=== PATIENT | female | born 1990 | race African-American/Black ===

== ENCOUNTER 2018-12-05 08:44 | Outpatient (CLI) | payer OTHER ==
[~2018-12-05] VITALS: Ht 172.7 cm; Wt 83.6 kg
[2018-12-05 09:22] VITALS: BP 124/81; PULSE 94; TEMP 98.4
[2018-12-05] MEDS ORDERED: PRENATAL MVI (09:22)
[2018-12-05 09:30] VITALS: BP 124/81; PULSE 94; TEMP 98.4
--- NOTE | 2018-12-05 09:36 | NUR ---
0915 PT ARRIVES VIA WC WITH CVOMPLAINTS OF SUSPECTED SROM. TO BED WITH MONITORS PLACED. SVE SHOWS NEGATIVE AMNIO INDICATOR. PLAN OF CARE DISCUSSED AND ASSESSMENT STARTED.
--- NOTE | 2018-12-05 10:16 | NUR ---
0940 ASSESSMENT COMPLETED,. PLAN OF CARE DISCUSSED. 0950 DR RESENDEZ ON UNIT FOR ROUNDS AND PT STATUS REPORT GIVEN. ORDERS FOR DISCHARGE RECIEVED. 1005 HOME CARE INSTRUCTIONS REVIEWED WITH PT AND VERBALIZES UNDERSTANDING OF SAME. MONITORS OFF. CLOTHES CHANGED. 1015 DISMISSED AMB TO SELF CARE WITH MOTHER AT SIDE.
== END 2018-12-05 10:15 | disposition home or self-care (01) ==
LOC: LDRO 08:44
DX: Z34.93 Encounter for supervision of normal pregnancy, unspecified, third trimester (principal); Z3A.40 40 weeks gestation of pregnancy

== ENCOUNTER 2018-12-09 14:04 | Inpatient (IN) | payer OTHER ==
[2018-12-09] VITALS (28 sets, daily range): BP systolic 102–152; BP diastolic 57–86; PULSE 82–117; TEMP 97.9–98.6
[~2018-12-09] VITALS: Ht 172.7 cm; Wt 84.5 kg
[~2018-12-09 14:04] MED LIST: PRENATAL MVI
--- NOTE | 2018-12-09 14:05 | NUR ---
Patient to LR6 via wheelchair with mother, changed into gown, FHR/TOCO monitors placed and explained. Patient states contractions just started and regular, having bloody mucus discharge. 1415:SVE-/-1 and bloody show. Assessment completed and plan of care discussed.
--- NOTE | 2018-12-09 15:10 | NUR ---
SVE-3-/-2, Patient very uncomfortable and notified Dr. Medeiros that will watch patient for another hour and okay with plan of care. 1518: FHR decreasing to 60-90 bpm for approx. 6 minutes. During this patient was turned left lateral, Oxygen was placed via mask 10ml/hr, IV placed in left hand per Marci RN, LR bolus started, patient right lateral. 1523: SVE-/-2 ,Dr Medeiros called and notified. 1526: FHR gradually increasing to 100-120bpm. 1532: Dr Medeiros at bedside and assessing patient and FHR strip. Plan of care discussed and patient agrees to plan. SVE per physician /-2 and AROM at this time, patient tolerates well. Patient requesting epidural and R.Abisai RELOCATION COORDINATOR called and notified. LR bolus continues 1600: Patient set up for epidural and R. Abisai RELOCATION COORDINATOR at bedside for procedure. FHR difficult to trace due to maternal position at this time. 1615: Single shot given and patient tolerates well. 1620: Patient repositioned and becoming more comfortable. Plan of care discussed. 1650: Pascual catheter placed, patient tolerates well and SVE 5//-1 Dr medeiros called and notified. 1720: FHR baseline 145bpm and decreasing to 110-120bpm for approx 4 minutes, moderate variability noted. Patient repositioned. FHR returning to baseline
[2018-12-09 15:58] LABS: BASO % 0.3 % (0.0-2.0); EOS # 0.2 (0.0-0.7); EOS % 1.7 % (0-4.0); GRAN # 7.2 (1.4-6.5); HEMATOCRIT 37.7 % (37.0-47.0); HEMOGLOBIN 12.3 g/dl (12.5-16.0); LYMPH # 1.7 (1.2-3.4); LYMPH % 16.4 % (20.0-51.0); MEAN CELL VOLUME 89 fl (80.0-100.0); MEAN CORPUSCULAR HEMOGLOBIN 29 pg (27.0-31.0); MEAN CORPUSCULAR HGB CONC 33 g/dl (33.0-37.0); MEAN PLATELET VOLUME 11.4 fl (7.4-10.4); MONO # 1.1 (0.1-0.6); PLATELET COUNT 259 K/mm3 (130-400); RED BLOOD COUNT 4.25 M/mm3 (4.10-5.30); REDCELL DISTRIBUTION WIDTH-CV 14.1 % (11.5-14.5)
--- NOTE | 2018-12-09 20:00 | NUR ---
PT IN RIGHT LATERAL WITH LEG RESTING IN STIRRUP. LATE DECELERATIONS NOTED. POSITION CHANGED TO HIGH FOWLERS, LATE DECELERATIONS RESOLVED.
--- NOTE | 2018-12-09 20:45 | NUR ---
2014- SVE OF COMPLETE/+2. 2018- DR. MCKEE NOTIFIED OF SVE, LATE DECELERATIONS NOTED. DR. MCKEE ON HER WAY FOR DELIVERY. TO BEGIN PUSHING WITH PT PER DR. MCKEE. 2023- ANDRE MERCER'Sabrina, 400 MLS CLEAR YELLOW URINE OUT. 2026- PT BEGINS PUSHING WITH THIS NURSE. 2029- DR. MCKEE IN ROOM FOR DELIVERY. 2037- SPONTANEOUS VAGINAL DELIVERY OF VIABLE BABY BOY. CORD CLAMPED AND CUT BY DR. MCKEE AND BABY TO WARMER FOR FURTHER ASSESSMENT BY Contreras CRAWFORD RN DUE TO MECONIUM FLUID. CORD GASES COLLECTED BY DR. MCKEE. 2039- SPONTANEOUS DELIVERY OF INTACT PLACENTA. SEND TO PATHOLOGY PER DR. MCKEE DUE TO MECONIUM FLUID. PITOCIN STARTED PER PROTOCOL. DR. MCKEE BEGINS REPAIR OF 2ND DEGREE LACERATION. UPON COMPLETION OF REPAIR BLEEDING WNL, FUNDUS FIRM.
[2018-12-10 00:30] VITALS: BP 114/68; PULSE 89
--- NOTE | 2018-12-10 01:15 | NUR ---
0045- PT UPTO BATHROOM, UNABLE TO VOID AT THIS TIME. PERICARE PROVIDED, PT RETURNED TO BED FOR STRAIGHT CATH. 0100- STRAIGHT CATH PERFORMED, 1100 MLS CLEAR YELLOW URINE OUT. FUNDUS FIRM, MIDLINE AND DOWN 1, BLEEDING MINIMAL FOLLOWING EMPTYING OF BLADDER. 0115- PT TAKEN TO VIA WHEELCHAIR. ORIENTED TO ROOM, QUESTIONS ENCOURAGED AND ANSWERED.
[2018-12-10 01:49] VITALS: TEMP 98.7
[2018-12-10 03:50] VITALS: BP 128/69; PULSE 89; TEMP 98.9
--- NOTE | 2018-12-10 09:12 | NUR ---
Initial visit; Parents thanked Mask Inspector for offering congratulations and God's blessings for the of their son and for thanking them for choosing [facility].
[2018-12-10 09:36] VITALS: BP 110/67; PULSE 101; TEMP 98.1
[2018-12-10] MEDS ORDERED: PERCOCET 325 MG1 TA2 PO (13:09)
[2018-12-10] MEDS ORDERED: IBU800 M1 PO (13:10)
[2018-12-10 16:28] VITALS: BP 100/61; PULSE 91; TEMP 97.7
[2018-12-10 20:00] VITALS: BP 110/63; PULSE 103; TEMP 98.5
[2018-12-11 04:00] VITALS: BP 106/67; PULSE 92; TEMP 98.4
[2018-12-11 09:00] VITALS: BP 117/62; PULSE 100; TEMP 98.3
== END 2018-12-11 14:45 | disposition home or self-care (01) | DRG 807 ==
LOC: LDRO 14:04 → OB 14:05 → LDR 14:05 → OB 12-10 03:00
PROVIDERS: Obstetrics & Gynecology; ADMIT Obstetrics & Gynecology
PROC: 10E0XZZ Delivery of Products of Conception, External Approach (ICD-10-PCS; principal; 2018-12-09)
PROC: 0KQM0ZZ Repair Perineum Muscle, Open Approach (ICD-10-PCS; 2018-12-09)
DX: O48.0 Post-term pregnancy (principal); Z37.0 Single live birth; O62.0 Primary inadequate contractions; O77.0 Labor and delivery complicated by meconium in amniotic fluid; Z3A.41 41 weeks gestation of pregnancy; O70.1 Second degree perineal laceration during delivery; O76 Abnormality in fetal heart rate and rhythm complicating labor and delivery
CPT/HCPCS: J2590; J2795; J7120